=== PATIENT | female | born 1955 | race Caucasian/White ===

== ENCOUNTER 2017-12-04 12:03 | Outpatient (CLI) | payer BC, SELFPAY ==
[2017-12-04 12:21] LABS: Abs Immature Grans 0.01 k/cumm (0.0-0.09); Absolute Basophil Count 0.03 k/cumm (0.0-0.2); Absolute Eosinophil Count 0.07 k/cumm (0.0-0.7); Absolute Lymphocyte Count 0.87 k/cumm (1.2-3.4); Absolute Monocyte Count 0.37 k/cumm (0.11-0.7); Absolute Neutrophil Count 2.03 k/cumm (1.2-6.7); Basophils % 0.9; Eosinophils % 2.1; HCT 43.6 % (36.0-46.0); Immature Grans % 0.3; Lymphocytes % 25.7; Mean Corp. HGB Concentration 32.1 g/dL (32.0-36.0); Mean Corpuscular Hemoglobin 30.4 pg (27.0-33.0); Mean Corpuscular Volume 94.6 fL (80-95); Monocytes % 10.9; Neutrophils % 60.1; Platelet Count 254 x1000/uL (130-400); RBC 4.61 m/cumm (4.00-5.20); RBC Distribution Width 13.4 % (11.7-14.6); White Blood Cell Count 3.38 k/cumm (4.4-10.8)
[2017-12-04 13:22] LABS: TSH (W/Ref FT4) 1.39 uIU/mL (0.358-3.74)
== END 2017-12-04 12:23 ==
PROVIDERS: PCP Family Medicine; Visit Provider Family Medicine
DX: E11.9 Type 2 diabetes mellitus without complications (principal); E03.9 Hypothyroidism, unspecified
CPT/HCPCS: 36415; 84443; 85025

== ENCOUNTER 2018-12-09 10:02 | Outpatient (CLI) | payer BC, SELFPAY ==
[2018-12-09 10:31] LABS: HCT 44.5 % (36.0-46.0); HGB 14.2 g/dL (12.0-15.5); Mean Corp. HGB Concentration 31.9 g/dL (32.0-36.0); Mean Corpuscular Hemoglobin 31.6 pg (27.0-33.0); Mean Corpuscular Volume 98.9 fL (80-95); Mean Platelet Volume 10.2 fL (8.0-11.0); Platelet Count 277 x1000/uL (130-400); RBC Distribution Width 12.6 % (11.7-14.6); White Blood Cell Count 3.46 k/cumm (4.4-10.8)
[2018-12-09 11:40] LABS: ALT 35 U/L (14-59); AST 23 U/L (15-37); Alkaline Phosphatase 87 U/L (46-116); Anion Gap 10.2 mmol/L (3-11); BUN 12 mg/dL (7-18); Bilirubin, Total 0.4 mg/dL (0.2-1.0); CO2 26.8 mmol/L (21.0-32.0); CREATININE 1.08 mg/dL (0.55-1.02); Calcium 9.4 mg/dL (8.5-10.1); Chloride 105 mmol/L (98-107); Estimated GFR 51.58 (mL/min/1.73m2); Glucose 96 mg/dL (70-100); Potassium 4.5 mmol/L (3.5-5.1); Sodium 142 mmol/L (136-145); TSH 1.59 uIU/mL (0.36-3.74); Total Protein 7.8 g/dL (6.4-8.2)
== END 2018-12-09 10:22 ==
PROVIDERS: PCP Family Medicine; Visit Provider Family Medicine
DX: E03.9 Hypothyroidism, unspecified (principal); E78.5 Hyperlipidemia, unspecified; K21.9 Gastro-esophageal reflux disease without esophagitis; R03.0 Elevated blood-pressure reading, without diagnosis of hypertension
CPT/HCPCS: 36415; 80053; 85027; 84443

== ENCOUNTER 2019-12-17 01:17 | Outpatient (CLI) | payer BC, SELFPAY ==
[2019-12-17 12:46] LABS: TSH 1.68 uIU/mL (0.36-3.74)
== END 2019-12-17 01:37 ==
PROVIDERS: PCP Family Medicine; Visit Provider Family Medicine
DX: E03.9 Hypothyroidism, unspecified (principal)
CPT/HCPCS: 36415; 84443

== ENCOUNTER 2020-08-24 14:22 | Outpatient (CLI) | payer BC, SELFPAY ==
--- NOTE | 2020-08-24 | DI.RAD_ITS ---
Exam(s) XR THORACIC SPINE COMPLETE EXAM: XR THORACIC SPINE COMPLETE CLINICAL HISTORY: BACK PAIN. TECHNIQUE: 2D digital imaging was performed. COMPARISON: No exams were available for comparison FINDINGS: No evidence of fracture nor listhesis. Mild multilevel disc space narrowing and anterior osseous lip ping in the mid thoracic spine level. There is minimal scoliosis convex left. No abnormal widening of the paraspinal lines. No osseous lesions evident in the thoracic spinal column. IMPRESSION: Mild findings as described above. DATA REPOSITORY: RADIATION DOSE DELIVERED:
--- NOTE | 2020-08-24 | DI.RAD_ITS ---
Exam(s) XR CERVICAL SPINE COMP 4-5V EXAM: XR CERVICAL SPINE COMP 4-5V CLINICAL HISTORY: NECK PAIN. TECHNIQUE: 2D digital imaging was performed. COMPARISON: No exams were available for comparison FINDINGS: There is no evidence of fracture, listhesis, nor offset of the spinal laminar line. There is evidenc e of chronic degenerative disc disease at C5-6 level with mild disc space narrowing and anterior oste ophytes at this level. Other disc spaces exhibit no significant findings. On the oblique views ther e are small bilateral Luschka joint osteophytes at C5-6 level. None at the other levels. There are no cervical ribs. No osseous lesions. IMPRESSION: Degenerative disc disease findings at C5-6 level. DATA REPOSITORY: RADIATION DOSE DELIVERED:
--- NOTE | 2020-08-24 | DI.RAD_ITS ---
Exam(s) XR LUMBAR SPINE AP, LAT EXAM: XR LUMBAR SPINE AP, LAT CLINICAL HISTORY: BACK PAIN. TECHNIQUE: 2D digital imaging was performed. COMPARISON: No exams were available for comparison FINDINGS: There is no evidence of compression fracture or anterior listhesis. Mild disc space narrowing at L2- 3 level +mild retrolisthesis L2 upon L3 noted. Other disc spaces exhibit mild narrowing at L4-5 leve l and anterior osseous lipping. Other disc spaces exhibit normal height. Mild facet degenerative ch anges. Sacroiliac joints appear unremarkable. No osseous lesions. Bone density is age-appropriate. IMPRESSION: This level findings as described above. DATA REPOSITORY: RADIATION DOSE DELIVERED:
== END 2020-08-24 14:42 ==
PROVIDERS: PCP Family Medicine; Visit Provider Chiropractor Orthopedic
DX: M50.322 Other cervical disc degeneration at C5-C6 level; M54.6 Pain in thoracic spine; M54.5 Low back pain
CPT/HCPCS: 72050; 72072; 72100

== ENCOUNTER 2020-12-29 02:06 | Outpatient (CLI) | payer BC, SELFPAY ==
[2020-12-29 13:17] LABS: TSH (W/Ref FT4) 2.28 uIU/mL (0.36-3.74)
== END 2020-12-29 02:07 | disposition home or self-care (01) ==
LOC: LOS 02:07
PROVIDERS: PCP Family Medicine; Visit Provider Family Medicine
DX: E03.9 Hypothyroidism, unspecified (principal)
CPT/HCPCS: 36415; 84443

== ENCOUNTER 2022-03-01 03:59 | Outpatient (CLI) | payer BC, SELFPAY ==
[2022-03-01 13:13] LABS: TSH (W/Ref FT4) 4.06 uIU/mL (0.36-3.74)
[2022-03-01 13:45] LABS: FREE T4 0.99 ng/dL (0.76-1.46)
== END 2022-03-01 04:00 | disposition home or self-care (01) ==
LOC: LOS 03:59
PROVIDERS: PCP Family Medicine; Visit Provider Family Medicine
DX: E03.9 Hypothyroidism, unspecified (principal)
CPT/HCPCS: 36415; 84439; 84443

== ENCOUNTER 2023-04-05 01:41 | Outpatient (CLI) | payer MEDICARE, BC, SELFPAY ==
[2023-04-05 14:13] LABS: TSH (W/Ref FT4) 3.78 uIU/mL (0.36-3.74)
[2023-04-05 14:29] LABS: FREE T4 0.93 ng/dL (0.76-1.46)
== END 2023-04-05 01:42 | disposition home or self-care (01) ==
LOC: LBO 01:42
PROVIDERS: PCP Family Medicine; Visit Provider Family Medicine
DX: E03.9 Hypothyroidism, unspecified (principal)
CPT/HCPCS: 36415; 84439; 84443

== ENCOUNTER 2024-05-07 02:40 | Outpatient (CLI) | payer MEDICARE, BC, SELFPAY | END 2024-05-07 02:41 | disposition home or self-care (01) | LOC: LOS 02:40 | PROVIDERS: PCP Family Medicine; Visit Provider Family Medicine | DX: E03.9 Hypothyroidism, unspecified (principal) | CPT/HCPCS: 36415; 84443 ==

== ENCOUNTER 2024-10-21 04:34 | Outpatient (CLI) | payer MEDICARE, BC, SELFPAY ==
[2024-10-21 14:23] LABS: Abs Immature Grans 0.01 10^3/uL (0.0-0.06); HCT 43.7 % (36.0-46.0); HGB 14.0 g/dL (11.2-15.7); Immature Grans % 0.2 %; MCH 31.0 pg (27.0-33.0); MCHC 32.0 % (32.0-36.0); MCV 97 fL (80-95); MPV 10.9 fL (8.0-11.0); Platelet Count 251 10^3/uL (130-400); RBC 4.51 10^6/uL (3.93-5.22); RDW 12.6 % (11.7-14.6); RDW-SD 45.0 fL; WBC 4.04 10^3/uL (4.4-10.8)
[2024-10-21 14:34] LABS: ESR 21 mm/hr (0-30)
[2024-10-21 14:40] LABS: Anion Gap 9.4 mmol/L (3-11); BUN 13 mg/dL (7-18); CO2 24.6 mmol/L (21.0-32.0); Calcium 9.4 mg/dL (8.5-10.1); Chloride 106 mmol/L (98-107); Estimated GFR 70.07 (mL/min/1.73m2); Glucose 111 mg/dL (74-106); Potassium 4.0 mmol/L (3.5-5.1); Sodium 140 mmol/L (136-145); TSH (W/Ref FT4) 2.58 uIU/mL (0.36-3.74); Uric Acid 4.9 mg/dL (2.6-6.0)
== END 2024-10-21 04:35 | disposition home or self-care (01) ==
LOC: LOS 04:34
PROVIDERS: PCP Family Medicine; Visit Provider Family Medicine
DX: R68.83 Chills (without fever) (principal); E03.9 Hypothyroidism, unspecified; I10 Essential (primary) hypertension
CPT/HCPCS: 36415; 80048; 85652; 84443; 84550; 85025; 86038; 86431